=== PATIENT | male | born 1940 | race Caucasian/White ===

== ENCOUNTER 2016-12-28 15:00 | Observation (INO) | payer MEDICARE, OTHER ==
[~2016-12-28] VITALS: Ht 165.1 cm; Wt 71.7 kg
--- NOTE | ~2016-12-28 | OR ---
PATIENT'S NAME: ANKUR MULLER [facility] AGE: 76 Y [address] ROOM: [facility] [place], [place] [address] LOCATION: G3 ADMIT DATE: 01/02/2017 OR/Procedure Report DISCHARGE DATE: 01/03/2017 FAMILY PHYSICIAN: Mauri Mckeon MD ATTENDING PHYSICIAN: CONSTANCE MARIA SURGEON: Constance Maria MD CLINIC PHYSICIAN DIRECTOR: None. DATE OF PROCEDURE: 01/02/2017 Corrected procedure per physician 01/23/17 AO PREOPERATIVE DIAGNOSES: Left complex flatfoot deformity with a previous attempted triple arthrodesis at an outside institution, gastrocnemius equinus/shortened Achilles tendon, hallux rigidus/hallux valgus (recurrent), subfibular impingement syndrome. POSTOPERATIVE DIAGNOSES: Left complex flatfoot deformity with a previous attempted triple arthrodesis at an outside institution, gastrocnemius equinus/shortened Achilles tendon, hallux rigidus/hallux valgus (recurrent), subfibular impingement syndrome. PROCEDURE: 1. Right tibiotalocalcaneal fusion. 2. Left first MTP joint fusion with plate screw construct. 3. Removal of deep buried hardware from previous surgery, left hindfoot. 4. Tendo-Achilles lengthening. 5. Peroneus longus to peroneus brevis tenodesis. 6. Lengthening of flexor hallucis longus, flexor digitorum longus, and excision of posterior tibial tendon. 7. Use of intraoperative fluoroscopy, less than 1 hour. ANESTHESIA: Spinal anesthesia with peripheral nerve blocks. FLUIDS: See Anesthesia report. ESTIMATED BLOOD LOSS: Minimal. TOURNIQUET: Left proximal thigh 250 mmHg. SPECIMEN: None. COMPLICATIONS: None. DISPOSITION: Stable in PACU. COUNT: All counts correct. PATIENT'S NAME: ANKUR MULLER [facility] AGE: 76 Y [address] ROOM: [facility] [place], [place] [address] LOCATION: [facility] ADMIT DATE: 01/02/2017 OR/Procedure Report DISCHARGE DATE: 01/03/2017 FAMILY PHYSICIAN: aMuri Mckeon MD ATTENDING PHYSICIAN: CONSTANCE AMRIA IMPLANTS: Kenia left tibiotalocalcaneal fusion nail and interlocking screws and Kenia CP anchorage 1st MTP joint fusion plate and screws. INDICATIONS: Mr. Muller is a pleasant 76-year-old gentleman who underwent the noted procedure above. The risks, benefits, and alternatives pursuing surgical events were discussed with the patient detail. He elected to proceed with surgery. Anesthesia was consulted for their perioperative evaluation of the patient. I marked the left lower extremity indicating the correct surgical site. OPERATIVE REPORT IN DETAIL: The patient was taken from the holding area to the operating room. A time-out was performed. Ancef antibiotic was administered for perioperative prophylaxis. A spinal anesthetic was administered and peripheral nerve blocks were also placed by the Anesthesia team. The left lower extremity then prepped and draped in a sterile fashion. I turned my attention to the left lower extremity. An Esmarch was used to exsanguinate the limb and the tourniquet was inflated to 250 mmHg. I turned my attention to the Achilles and there was gastrocnemius equinus/shortened Achilles tendon. I performed a tendo-Achilles lengthening procedure with a 15 blade knife at the posterior aspect of the Achilles. I did lengthen the Achilles. I noted to get the ankle to neutral position. I then turned my attention to the lateral aspect of the ankle. I made a transfibular incision through skin and subcutaneous tissue down to bone. I then used an oscillating saw to osteotomize the fibula and excise it and have it then use it for bone graft. I then prepped the tibiotalar and subtalar joints. I did have to remove deep buried hardware from a previous foot surgery. I introduced intraoperative fluoroscopy. I was able identify the hardware and subsequently remove it. I then made a small incision in the plantar surface at the level of the heel. I placed a guidewire through the calcaneus, talus, and tibia. I checked the placement of the guide pin, which eventually would be the position of my intramedullary device. I subsequently used my opening reamer and then reamed up to 12.5 for size 11 nail. The nail was subsequently placed. I drilled for, measured, and placed a screw into the talus and then subsequently locked the nail proximally with 2 interlocking screws in the tibia. Small incisions were made through skin and subcutaneous tissue down to bone. The cannulas were placed, the holes were drilled, length of screws were measured fluoroscopically, and the screws were placed. I then subsequently was able to perform compression through the tibiotalar articulation using the dynamic PATIENT'S NAME: ANKUR MULLER [facility] AGE: 76 Y [address] ROOM: [id number] [place], [place] [address] LOCATION: G3N ADMIT DATE: 01/02/2017 OR/Procedure Report DISCHARGE DATE: 01/03/2017 FAMILY PHYSICIAN: Mauri Mckeon MD ATTENDING PHYSICIAN: CONSTANCE MARIA compression screw in the nail. I did achieve good compression through the nail. I then placed a screw in the lateral calcaneus. I then applied extrinsic compression across the subtalar joint. I then drilled for, measured fluoroscopically, and placed an another interlocking screw at the level of the calcaneus to hold the tibiotalar and subtalar joints in a compression mode. I confirmed this all fluoroscopically. I decided to place a posterior "home-run screw" through the nail and in the calcaneus for additional fixation. I drilled for, subsequently measured, and placed the screw. The screw was countersunk. I placed an end cap to turn the screw into a fixed angle device. Final fluoroscopic images were taken revealing a successful tibiotalocalcaneal fusion with the hindfoot in neutral position. It also indicated a successful removal of deep, buried retained hardware. I turned my attention to the lateral aspect of the hindfoot again where the fibula was excised. I tenodesed the peroneus longus to the peroneus brevis tendon using a FiberWire. I then excised the distal portion of the peroneus longus tendon. I then turned my attention to the medial aspect of the foot making a surgical incision at the level of the navicular bone through skin, subcutaneous tissue, identified the posterior tibial tendon, which appeared to be ruptured and nonviable. I subsequently lysed and lengthened. I identified the flexor hallucis longus and flexor digitorum longus tendons and subsequently lengthen them. This adjusted the position of the midfoot and forefoot. The wounds were then all copiously irrigated with a normal sterile saline solution. I placed the morselized fibula bone graft at the fusion sites. The wounds were closed in layers beginning with 0 Vicryl suture, followed by 2-0 Vicryl suture, and hever to approximate the skin. I then turned my attention to the right 1st MTP joint. The patient had a previous bunionectomy that had gone onto fail. I used the same dorsal medial incision over the 1st MTP joint. Identified and retracted the extensor hallucis longus tendon laterally. I exposed the 1st MTP joint. I used a cup and cone reamer and fluoroscopically confirmed the proposed fusion position for the great toe. I pinned it provisionally in place. I drilled for and provisionally placed the plate. I drilled a compression screw across the 1st MTP joint and achieved good fixation. The great toe was now in neutral position. I placed 2 proximal and distal holes in the plate to achieve multiple points of locked screw fixation. I took final fluoroscopic images revealing a successful 1st MTP joint fusion of the left 1st MTP joint. The remaining morselized fibular bone graft was placed in the 1st MTP joint fusion to augment the surgical site. A layered closure began with 2-0 Vicryl PATIENT'S NAME: ANKUR MULLER [facility] AGE: 76 Y [address] ROOM: [place] [id number] LOCATION: [facility] ADMIT DATE: 01/02/2017 OR/Procedure Report DISCHARGE DATE: 01/03/2017 FAMILY PHYSICIAN: Mauri Mckeon MD ATTENDING PHYSICIAN: CONSTANCE MARIA suture to approximate the deeper tissue followed by 3-0 Vicryl suture for the subcutaneous tissue and 3-0 nylon suture in interrupted horizontal mattress fashion for the skin. Sterile dressings were then placed in the form of Xeroform followed by 4x4 and Webril. The patient was then placed into a well-padded short-leg splint with the ankle in neutral dorsiflexion. The patient was then transferred from the operating table onto the stretcher and brought to recovery room in stable condition. There were no intraoperative complications noted. IMPRESSION: The patient is status post the noted procedure above. PLAN: The patient will be nonweightbearing on the left lower extremity, he will be maintained in a short-leg splint, encouraged to rest, ice, and elevate the extremity going forward. Postoperative pain control in the form of Percocet and IV morphine as needed for pain. The Ancef antibiotic was re-dosed at the end of the case. After the tourniquet was let down, all of the toes reperfused. DVT prophylaxis will be in the form of aspirin. The patient will likely be admitted for observation and we will watch the patient closely in the postoperative period. MD MARCELO HERNANDES/pauline /[id number] Corrected procedure per physician 01/23/17 AO d: 01/03/17 0024 t: 01/23/17 1101, OPERATIVE SUMMARY
[2016-12-28] MEDS ORDERED: ADVAIR 100-501 EACH INH (15:45)
[2016-12-28] MEDS ORDERED: PROVENTIL OR V6.7 GM INH (15:46)
--- NOTE | 2017-01-03 04:40 | NUR ---
Significant Event: 1-2 assist with transfers. NWB L) leg. Drainage to dressing. Numb from bottom of knee to foot. Color to toes has improved. Percocet x1 at 0336. On room air. Tachycardic. Voids without difficulty. Follow up:
[2017-01-03] MEDS ORDERED: PERCOCET 5-3251 EACH PO (10:26)
[2017-01-03] MEDS ORDERED: ECOTRIN325 MG PO (10:27)
--- NOTE | 2017-01-03 11:10 | NUR ---
Introduced self/role to patient. He lives in [place] with his . This is his 3rd surgery he reports for the same type of issue. He has a knee scooter and other needed DME. He can't think of any other needs. He is planning to go home today. Wrote my name on his marker board.
--- NOTE | 2017-01-03 14:49 | NUR ---
Dismissal Note: Ambulates with SBA and knee scooter. Splint changed by KARIME Dia this morning, C/D/I at time of dismissal. Voids per urinal. Percocet for pain control, see emar. IV d/cd. Natty education given with dismissal instructions, patient and state understanding. Dismissed to home.
== END 2017-01-03 14:30 | disposition disaster alternative care site (69) ==
LOC: G3N 01-02 10:39
PROVIDERS: ADMIT Orthopaedic Surgery Adult Reconstructive Orthopaedic Surgery
PROC: [UNRECOGNIZED PROCEDURE] (principal; 2017-01-02)
PROC: 0SGN0ZZ (ICD-10-PCS; 2017-01-02)
PROC: 0L8T0ZZ Division of Left Ankle Tendon, Open Approach (ICD-10-PCS; 2017-01-02)
PROC: 0L8P0ZZ Division of Left Lower Leg Tendon, Open Approach (ICD-10-PCS; 2017-01-02)
DX: M21.42 Flat foot [pes planus] (acquired), left foot (principal); M21.6X2 Other acquired deformities of left foot; M25.872 Other specified joint disorders, left ankle and foot; J44.9 Chronic obstructive pulmonary disease, unspecified; J45.909 Unspecified asthma, uncomplicated; M19.90 Unspecified osteoarthritis, unspecified site; I65.29 Occlusion and stenosis of unspecified carotid artery; E78.5 Hyperlipidemia, unspecified; I87.2 Venous insufficiency (chronic) (peripheral); Z98.890 Other specified postprocedural states; Z79.899 Other long term (current) drug therapy
CPT/HCPCS: C1713; C1769; G0378; G8978; G8979; G8980; J0690; J2250; J3480; J7120